=== PATIENT | male | born 1975 | race Caucasian/White ===

== ENCOUNTER 2017-09-20 16:07 | Emergency (ER) | payer BC ==
[~2017-09-20] VITALS: Ht 182.9 cm; Wt 100.0 kg
[~2017-09-20 16:07] MED LIST: NO HOME MEDICATIONS; NORCO 325 MG-51 TAB PO
[2017-09-20 16:23] VITALS: TEMP 97.9
[2017-09-20] MEDS ORDERED: SINGULAIR 110 MG/TAB PO (16:30)
[2017-09-20] MEDS ORDERED: ADDERALL10 MG PO (16:30)
[2017-09-20] MEDS ORDERED: CLARITIN 1010 MG/TAB PO (16:30)
[2017-09-20 16:58] LABS: BASO % 0.4 % (0.0-2.0); EOS # 0.1 (0.0-0.7); EOS % 0.5 % (0-4.0); GRAN # 8.9 (1.4-6.5); GRAN % 80.4 % (42.2-75.2); HEMOGLOBIN 14.8 g/dl (13.5-18.0); LYMPH # 1.2 (1.2-3.4); LYMPH % 10.6 % (20.0-51.0); MEAN CELL VOLUME 85 fl (80.0-100.0); MEAN CORPUSCULAR HEMOGLOBIN 29 pg (27.0-31.0); MEAN CORPUSCULAR HGB CONC 34 g/dl (33.0-37.0); MEAN PLATELET VOLUME 9.1 fl (7.4-10.4); MONO # 0.9 (0.1-0.6); MONO % 7.8 % (1.7-9.3); PLATELET COUNT 271 K/mm3 (130-400); RED BLOOD COUNT 5.15 M/mm3 (4.20-5.60); REDCELL DISTRIBUTION WIDTH-CV 11.9 % (11.5-14.5)
[2017-09-20 17:05] LABS: PROTHROMBIN TIME 11.1 SECONDS (9.7-12.8)
[2017-09-20 17:07] LABS: PARTIAL THROMBOPLASTIN TIME 27.6 SECONDS (26.0-37.0)
[2017-09-20 17:09] LABS: D-DIMER < 200.00 ng/mLDDu (200-230)
[2017-09-20 17:30] LABS: ALANINE AMINOTRANSFERASE 51 U/L (21-72); ALBUMIN 4.5 gm/dL (3.5-5.0); ALKALINE PHOSPHATASE 86 U/L (50-136); ANION GAP 8 mmol/L (7-16); AST,SGOT 58 U/L (15-37); BILIRUBIN,TOTAL 0.6 mg/dL (0.0-1.0); BLOOD UREA NITROGEN 12 mg/dL (9-20); CALCIUM 8.8 mg/dL (8.4-10.2); CARBON DIOXIDE 26 mmol/L (22-30); CHLORIDE 102 mmol/L (98-107); CREATININE, serum 0.91 mg/dL (0.66-1.25); GLUCOSE 102 mg/dL (74-106); LIPASE 37 U/L (23-300); SODIUM 135 mmol/L (137-145); TOTAL PROTEIN 7.5 gm/dL (6.4-8.2)
[2017-09-20 17:50] LABS: TROPONIN-I < 0.012 ng/mL (0.000-0.034)
[2017-09-20 20:15] VITALS: BP 109/64; PULSE 89
[2017-09-22] MEDS ORDERED: ASPIRIN 81M81 MG/TA2 PO (16:26)
[2017-09-22] MEDS ORDERED: PRILOTC PO (16:27)
[2017-09-22] MEDS ORDERED: VENTOLIN0.09 MG IH (16:33)
[2017-09-22] MEDS ORDERED: 00186-0372-20 IH (16:34)
[2017-09-23] MEDS ORDERED: ADDERALL10 MG PO (06:31)
== END 2017-09-20 20:20 | disposition home or self-care (01) ==
LOC: COL.ER 16:07
PROVIDERS: Emergency Medicine
DX: R07.89 Other chest pain (principal); F90.9 Attention-deficit hyperactivity disorder, unspecified type; F17.210 Nicotine dependence, cigarettes, uncomplicated; Z82.49 Family history of ischemic heart disease and other diseases of the circulatory system

== ENCOUNTER → 2017-09-23 | Outpatient (CLI) | payer BC ==
[~2017-09-23] VITALS: Ht 182.9 cm; Wt 100.0 kg
[~2017-09-23] MED LIST changes: +00186-0372-20 IH; +ADDERALL10 MG PO; +ASPIRIN 81M81 MG/TA2 PO; +CLARITIN 1010 MG/TAB PO; +PRILOTC PO; +SINGULAIR 110 MG/TAB PO; +VENTOLIN0.09 MG IH
[2017-09-23 06:40] VITALS: BP 145/80; PULSE 82
== END ==
LOC: COL.CARD 06:25
DX: R07.9 Chest pain, unspecified (principal); E78.5 Hyperlipidemia, unspecified
CPT/HCPCS: A9502

== ENCOUNTER → 2017-12-22 | Outpatient (CLI) | payer BC | LOC: COL.RAD 11:06 | DX: I31.3 Pericardial effusion (noninflammatory) (principal); J98.11 Atelectasis | CPT/HCPCS: Q9967 ==